=== PATIENT | female | born 1995 | race Caucasian/White ===

== ENCOUNTER 2021-01-06 14:22 | Outpatient (REF) | payer OTHER, MEDICAID, SELFPAY | END 2021-01-06 14:23 | disposition home or self-care (01) | LOC: HO.LAB 14:22 | PROVIDERS: PCP Nurse Practitioner Family; Visit Provider Internal Medicine | DX: Z20.822 Contact with and (suspected) exposure to COVID-19 (principal) | CPT/HCPCS: C9803; U0003; U0005 ==

== ENCOUNTER 2021-10-28 | Outpatient (REF) | payer MEDICAID, SELFPAY ==
[2021-10-28 12:19] LABS: Influenza A PCR NEGATIVE (Negative); Influenza B PCR NEGATIVE (Negative); Resp Syncy Virus RNA Qual PCR NEGATIVE (Negative); SARS COV2 PCR INHOUSE NEGATIVE (Negative)
== END 2021-10-28 00:01 | disposition home or self-care (01) ==
LOC: HO.LNP
PROVIDERS: Visit Provider Physician Assistant
DX: Z20.822 Contact with and (suspected) exposure to COVID-19 (principal); R09.89 Other specified symptoms and signs involving the circulatory and respiratory systems
CPT/HCPCS: 0241U